=== PATIENT | female | born 1980 | race Caucasian/White ===

== ENCOUNTER 2020-10-07 15:54 | Outpatient (CLI) | payer OTHER, SELFPAY ==
--- NOTE | 2020-10-07 15:40 | DI.RAD_ITS ---
EXAM: XR KNEE LT 3V AP,LAT,FABIOLA CLINICAL HISTORY: L knee injury. TECHNIQUE: 2D digital imaging was performed. COMPARISON: No exams were available for comparison FINDINGS: There is no evidence fracture. There is a small amount of increased joint fluid. No large joint eff usion. No osteochondral defects or joint space narrowing. No osteophytes. Bone density is normal. IMPRESSION: DATA REPOSITORY: RADIATION DOSE DELIVERED:
== END 2020-10-07 15:55 | disposition home or self-care (01) ==
LOC: DIORS 15:54
PROVIDERS: Visit Provider Physician Assistant
DX: S89.82XA Other specified injuries of left lower leg, initial encounter (principal); M25.462 Effusion, left knee
CPT/HCPCS: 73562

== ENCOUNTER → 2020-10-21 01:57 | Outpatient (CLI) | payer OTHER, SELFPAY ==
--- NOTE | 2020-10-21 08:30 | DI.MRI_ITS ---
EXAM: MR LOWER JOINT LT WO CLINICAL HISTORY: KNEE INJURY, PAIN,INTERNAL DERANGEMENT,M23.92. TECHNIQUE: Multiplanar multisequence MRI was performed. COMPARISON: CR XR KNEE LT 3V AP,LAT,FABIOLA from 10/07/2020 CR XR KNEE LT 3V AP,LAT,FABIOLA from 10/07/2020 FINDINGS: there is a small joint effusion. There is edema around the medial collateral ligament and thickening near the femoral attachment consistent with a partial tear. The cruciate and lateral collateral liga ment complex as well as extensor mechanism appear intact. There is abnormal high signal in the poste rolateral aspect of the lateral femoral condyle consistent with a bone contusion. There is a small amount of high signal in the body of the lateral meniscus peripherally which could represent a for a small tear. This does not appear to extend to an articular surface. No cartilage defects are seen. IMPRESSION: Partial tear of the medial collateral ligament. Contusion of the lateral femoral condyle. Question of small tear in the body of the medial meniscus. DATA REPOSITORY:
== END ==
PROVIDERS: Visit Provider Student in an Organized Health Care Education/Training Program
DX: S83.412A Sprain of medial collateral ligament of left knee, initial encounter (principal); M23.92 Unspecified internal derangement of left knee
CPT/HCPCS: 73721